=== PATIENT | male | born 1990 | race Two or more races ===

== ENCOUNTER 2019-06-11 15:22 | Emergency (ER) | payer SELFPAY ==
[~2019-06-11] VITALS: Ht 177.8 cm; Wt 63.6 kg
--- NOTE | 2019-06-11 15:49 | NUR ---
PATIENT BROUGHT BACK FOR NAIL THROUGH LEFT TOE.
[2019-06-11] MEDS ORDERED: ONDANSETRON 2MG/ML, 2ML ONE (15:53)
[2019-06-11] MEDS ORDERED: MORPHINE SULFATE 4 MG/ML, 1ML ONE (15:54)
[2019-06-11] MEDS ORDERED: ONDANSETRON 2MG/ML, 2ML IVPush ONE (16:00)
[2019-06-11] MEDS ORDERED: MORPHINE SULFATE 4 MG/ML, 1ML IVPush ONE (16:00)
[2019-06-11] MEDS ORDERED: ETOMIDATE 20 MG/10 ML ONE (16:15)
[2019-06-11] MEDS ORDERED: LIDOCAINE-MPF 1%, 5ML ONE (16:17)
[2019-06-11] MEDS ORDERED: BUPIVACAINE 0.25% ONE (16:17)
--- NOTE | 2019-06-11 16:20 | NUR ---
FELIPE MESSINA AT BEDSIDE FOR LEFT GREATER TOE NAIL REMOVAL. PT TOLERATED PROCEDURE WELL, REFER TO PROCEDURAL SEDATIONS SHEET. VITAL SIGNS STABLE
[2019-06-11] MEDS ORDERED: ETOMIDATE 20 MG/10 ML IVPush ONE (16:30)
--- NOTE | 2019-06-11 16:39 | NUR ---
PT TO IMAGING
[2019-06-11] MEDS ORDERED: BUPIVACAINE 0.25% INFIL ONE (17:00)
[2019-06-11] MEDS ORDERED: DIPH,PERTUSS(ACELL),TET VAC/PF 0.5 ML IM-VACC ONE ×2 (17:00→18:06)
[2019-06-11] MEDS ORDERED: LIDOCAINE 1%, 10ML INFIL ONE (17:00)
--- NOTE | 2019-06-11 17:06 | NUR ---
REPORT RECEIVED FROM SEJAL DAVISON. ASSUMED CARE OF PT. PT CURRENTLY RESTING ON GURBENJAMIN. NAD NOTED. SKIN PWD. RESP EVEN AND UNLABORED. PT AO X 4. PT ON CONT BP, CARDIAC AND O2 MONITORS. WILL CONT TO MONITOR PT.
--- NOTE | 2019-06-11 18:00 | NUR ---
PT CONCHA RESTING ON GURNEY. PT AO X 4. SKIN PWD. RESP EVEN AND UNLABORED. 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 FAMILY AT BEDSIDE. PT AND FAMILY DENY NEEDS. CALL LIGHT WITHIN REACH. WILL CONT TO MONITOR PT.
[2019-06-11 18:21] VITALS: BP 108/44
== END 2019-06-11 18:24 | disposition home or self-care (01) ==
LOC: ED 18:10
DX: S91.142A Puncture wound with foreign body of left great toe without damage to nail, initial encounter (principal); X58.XXXA Exposure to other specified factors, initial encounter; Y93.89 Activity, other specified; Y92.69 Other specified industrial and construction area as the place of occurrence of the external cause; Y99.0 Civilian activity done for income or pay
CPT/HCPCS: 73620; 90471; 90715; 96374; 96375; 99285; J2270; J2405; J3490